=== PATIENT | female | born 1970 | race Caucasian/White ===

== ENCOUNTER 2019-01-11 18:56 | Emergency (ER) | payer OTHER ==
[~2019-01-11] VITALS: Ht 149.9 cm; Wt 72.6 kg
[~2019-01-11 18:56] MED LIST: CATAFLAM50 MG PO; MOTRIN800 MG PO; ORPH100T PO
[2019-01-11] MEDS ORDERED: SKELAXIN800 MG PO (21:58)
[2019-01-11] MEDS ORDERED: MEDROLPACK PO (21:58)
[2019-01-11] MEDS ORDERED: CELEBREX200MG PO (21:58)
== END 2019-01-11 22:02 | disposition home or self-care (01) ==
LOC: ER 18:56
DX: S16.1XXA Strain of muscle, fascia and tendon at neck level, initial encounter (principal); M54.2 Cervicalgia; M75.82 Other shoulder lesions, left shoulder

== ENCOUNTER 2020-01-14 01:23 | Emergency (ER) | payer OTHER ==
[~2020-01-14] VITALS: Ht 149.9 cm; Wt 72.6 kg
[~2020-01-14 01:23] MED LIST changes: +CELEBREX200MG PO; +MEDROLPACK PO; +SKELAXIN800 MG PO
[2020-01-14] MEDS ORDERED: KETO10TA2 PO (04:25)
[2020-01-14] MEDS ORDERED: CEFUROXIME500 MG PO (04:25)
== END 2020-01-14 04:48 | disposition home or self-care (01) ==
LOC: ER 01:23
DX: H00.032 Abscess of right lower eyelid (principal)

== ENCOUNTER 2020-11-14 20:13 | Emergency (ER) | payer OTHER ==
[~2020-11-14] VITALS: Ht 149.9 cm; Wt 72.6 kg
[~2020-11-14 20:13] MED LIST changes: +CEFUROXIME500 MG PO; +KETO10TA2 PO
[2020-11-14] MEDS ORDERED: DICLOFENAC SODI75 MG PO (20:30)
== END 2020-11-14 21:04 | disposition home or self-care (01) ==
LOC: ER 20:13
DX: M75.82 Other shoulder lesions, left shoulder (principal)

== ENCOUNTER 2025-02-27 10:49 | Emergency (ER) | payer OTHER ==
[~2025-02-27] VITALS: Ht 149.9 cm; Wt 72.6 kg
[~2025-02-27 10:49] MED LIST changes: +DICLOFENAC SODI75 MG PO
[2025-02-27] MEDS ORDERED: KETOROLAC TROMETHAMINE 60 MG VIAL IM STA (14:22)
[2025-02-27] MEDS ORDERED: KETOROLAC TROMETHAMINE 60 MG VIAL IM ONE (14:25)
== END 2025-02-27 14:44 | disposition home or self-care (01) ==
LOC: ER 11:05
DX: M54.2 Cervicalgia (principal); M62.838 Other muscle spasm